=== PATIENT | male | born 1985 | race American Indian/Alaskan Native ===

== ENCOUNTER 2019-07-26 17:02 | Emergency (ER) | payer OTHER ==
--- NOTE | 2019-07-26 17:59 | Emergency Department Report ---
Blank Doc - Documentation Documentation: 2-year-old male that presents with facial swelling after eating in [employer] [facility] earlier. Exam: no angioedema noted. This initial assessment/diagnostic orders/clinical plan/treatment(s) is/are subject to change based on patient's health status, clinical progression and re-assessment by fellow clinical providers in the ED. Further treatment and workup at subsequent clinical providers discretion. Patient/guardians urged not to elope from the ED as their condition may be serious if not clinically assessed and managed. Initial orders include: 1- Patient sent to [facility] for further evaluation and treatment Patient brought back to [facility] room for treatment.
[2019-07-26] MEDS ORDERED: FAMOTIDINE 20 MG TAB PO ONE (18:25)
[2019-07-26] MEDS ORDERED: diphenhydrAMINE 25 MG/10 ML ORAL LIQUID PO ONE (18:25)
[2019-07-26] MEDS ORDERED: predniSONE 20 MG TAB PO ONE (18:25)
[2019-07-26 18:26] VITALS: BP 149/98
--- NOTE | 2019-07-26 18:26 | Emergency Department Report ---
ED General Adult HPI - General Chief complaint: Allergic Reaction Stated complaint: FACE SWELLING Time Seen by Provider: 07/26/19 17:58 Source: patient Mode of arrival: Ambulatory Limitations: No Limitations - History of Present Illness Initial comments: Patient is a 34-year-old male presents emergency room with complaints of right- sided facial swelling that began approximately 2 hours ago. He states that he was at [employer] and had some ribs and salmon and there was a salsa. 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 Patient states shortly after he began to feel increased saliva and facial swelling on the right-hand side. He denies any difficulty breathing, rash, itching, throat swelling, difficulty swallowing. He states that his only past medical history is HIV and he is on his antivirals. No allergies to medications. - Related Data Previous Rx's Medication Instructions Recorded Last Taken Type Amoxicillin/Potassium Clav 1 each PO BID 10 Days #20 tablet 07/26/19 Unknown Rx [Augmentin 875-125 Tablet] Allergies Allergy/AdvReac Type Severity Reaction Status Date / Time pepper (genus Capsicum) AdvReac Angioedema Verified 07/26/19 17:05 ED Review of Systems ROS: Stated complaint: FACE SWELLING Other details as noted in HPI Comment: All other systems reviewed and negative ED Past Medical Hx - Past Medical History Previous Medical History?: No - Surgical History Past Surgical History?: No - Medications Home Medications: Home Medications Medication Instructions Recorded Confirmed Last Taken Type Amoxicillin/Potassium Clav 1 each PO BID 10 Days #20 tablet 07/26/19 Unknown Rx [Augmentin 875-125 Tablet] ED Physical Exam - General Limitations: No Limitations General appearance: alert, in no apparent distress - Head Head exam: Present: atraumatic, normocephalic - Eye Eye exam: Present: normal appearance - ENT ENT exam: Present: normal orophraynx, mucous membranes moist, other (right sided parotid gland edema and mild ttp, no increased warmth or erythema at this time, no uvula edema, no tongue edema, no angioedema, uvula is midline) - Respiratory Respiratory exam: Present: normal lung sounds bilaterally. Absent: respiratory distress, wheezes, rales, rhonchi, stridor, chest wall tenderness, accessory muscle use, decreased breath sounds, prolonged expiratory - Cardiovascular Cardiovascular Exam: Present: regular rate, normal rhythm, normal heart sounds. Absent: systolic murmur, diastolic murmur, rubs, gallop - Neurological Exam Neurological exam: Present: alert, oriented X3 - Psychiatric Psychiatric exam: Present: normal affect, normal mood - Skin Skin exam: Present: warm, dry, intact. Absent: rash ED Course Vital Signs 07/26/19 17:08 Temperature 98.5 F Pulse Rate 109 H Respiratory 20 Rate Blood Pressure 149/98 O2 Sat by Pulse 95 Oximetry ED Medical Decision Making - Lab Data Vital Signs 07/26/19 17:08 Temperature 98.5 F Pulse Rate 109 H Respiratory 20 Rate Blood Pressure 149/98 O2 Sat by Pulse 95 Oximetry repeat vitals performed by Bert, SURINDER HR 93 oxygen saturation 98% on RA RR 17 - Medical Decision Making Patient is a 34-year-old male presents emergency room with complaints of right- sided facial swelling that began approximately 2 hours ago. He states that he was at [employer] and had some ribs and salmon and there was a salsa. 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 Patient states shortly after he began to feel increased saliva and facial swelling on the right-hand side. He denies any difficulty breathing, rash, itching, throat swelling, difficulty swallowing. He states that his only past medical history is HIV and he is on his antivirals. No allergies to medications. Initial vitals with mild tachycardia which improved to normal upon repeat. on exam: right sided parotid gland edema and mild ttp, no increased warmth or erythema at this time, no uvula edema, no tongue edema, no angioedema, uvula is midline, no respiratory distress, lungs are CTA bilaterally, no stridor. Examination does not appear consistent with an acute allergic reaction, no signs of angioedema, patient given steroid, Pepcid, Benadryl. Examination is consistent with sialoadenitis/parotitis. pt states he received all his childhood immunizations. Patient given prescription for Augmentin. Advised patient that if symptoms are not improving in the next couple of days to please see a ENT doctor. advised pt to Please take medication as prescribed. Please suck on something sour such as lemon lozenges. increase your fluid intake. Follow-up with the ENT doctor if symptoms are not improving. Return to the emergency room immediately for any new or worsening symptoms. - Differential Diagnosis abscess, allergic reaction, sialoadenitis, parotitis, sialolithiasis, mumps Critical care attestation.: If time is entered above; I have spent that time in minutes in the direct care of this critically ill patient, excluding procedure time. ED Disposition Clinical Impression: Acute sialoadenitis Disposition: TO HOME OR SELFCARE Is pt being admited?: No Does the pt Need Aspirin: No Condition: Stable Instructions: Sialoadenitis (ED) Additional Instructions: Please take medication as prescribed. Please suck on something sour such as lemon lozenges. increase your fluid intake. Follow-up with the ENT doctor if symptoms are not improving. Return to the emergency room immediately for any new or worsening symptoms. Prescriptions: Amoxicillin/Potassium Clav [Augmentin 875-125 Tablet] 1 each PO BID 10 Days #20 tablet Referrals: ASHLY REIS MD [Staff Physician] - 2-3 Days ASHISH SÁNCHEZ MD [Staff Physician] - 2-3 Days Time of Disposition: 18:29 Print Language: TURKISH
== END 2019-07-26 18:40 | disposition home or self-care (01) ==
LOC: ED 17:02
DX: K11.21 Acute sialoadenitis (principal); Z21 Asymptomatic human immunodeficiency virus [HIV] infection status; Z79.2 Long term (current) use of antibiotics; Z91.018 Allergy to other foods
CPT/HCPCS: 99282; J7512; Q0163